=== PATIENT | female | born 1975 | race Caucasian/White ===

== ENCOUNTER 2022-03-14 10:59 | Inpatient (IN) | payer OTHER, SELFPAY ==
[2022-03-06 10:48] VITALS: BMI 34.3
--- NOTE | 2022-03-06 10:51 | PC.NURSE ---
Report to the Outpatient Waiting Room, entrance under the green pavilion located off [facility], at time 0700 on date 03/14/22. Planned Procedure Time: 0900. Time changes happen often and if your time is changed the preop area will call you the afternoon before. - You and your visitor will be asked to self-screen and do not enter if you have any COVID symptoms. - Only one visitor is requested with a max of two and NO children visitors are allowed at this time. - The patient visitor may be requested to leave or wait in car when not with patient due to distancing restrictions. - A mask is optional within the hospital. Patients may have clear liquids (water, carbonated beverages, clear teas, apple juice) until 3 hours prior to surgery with a maximum of 20 ounces. - No food from midnight until time of surgery Take the following medications with a SIP of water the morning of surgery: DULOXETINE, LEVOTHYROXINE Medications to discontinue per physician: N/A Date to take last dose: N/A Please no make-up, nail guamanian, hairspray, perfume, deodorant, or body powder the day of surgery. No jewelry (including any body piercings) or valuables the day of surgery, leave them at home. Please take a shower or bath the night before, or the morning of, surgery with an antibacterial soap. Wear comfortable, loose fitting clothing. - Jewelry must be removed prior to entering the operating room. Rings and piercings that are not removed may be cut off. - The hospital will not accept responsibility for valuables. - Please leave all valuables, including medications, at home the day of surgery. If you are going home after surgery, a licensed service car driver must drive you home. - NO public transportation without another adult if you receive anesthesia. - We recommend that an adult stay with you for 24 hours following discharge. - We also recommend that you do not drive, make important decision, drink alcoholic beverages, or take any drugs that were not prescribed by your health care provider for at least 24 hours after your discharge time. Follow any additional instructions given to you from your surgeon. If you or anyone in your household have experienced Covid symptoms in the past week, please notify your surgeon or the nurse liaison at the phone number below for possible testing. Telephone instructions given to PT - RUDDY MENDOZA and asked if any additional questions and then verbalized understanding. Patient advised to call surgeon office or pre surgery nurse liaison [phone] if any additional questions.
--- NOTE | 2022-03-12 15:08 | PM.IMHP ---
H&P: HPI History of Present Illness Date/Time: 03/12/22 15:08 47-year-old female 4 para 3013 presents for surgical management of heavy vaginal bleeding. Cycles are lasting 7-10 days heavy bleeding with clots and cramping these are occurring at 3-4 week intervals. She is known to have uterine fibroids and recent ultrasound revealed enlarged globular uterus with 11-12 cm posterior fibroid as well. Multiple options have been discussed and she desires to proceed with laparotomy with hysterectomy and ovarian preservation. Chief Complaint: Menometrorrhagia Review of Systems Review of Systems: All systems reviewed & are unremarkable except as noted in HPI and below PMFSH Past Medical History Medical History Adult hypothyroidism Anxiety Encounter for annual routine gynecological examination Hx of nephrolithotomy with removal of calculi Kidney stones Major depressive disorder, recurrent, moderate Other and unspecified hyperlipidemia Screening mammogram, encounter for Surgical History Surgical History History of dilation and curettage 2002 suction d&c--miscarriage History of tonsillectomy Family History Family History Mother Hypertension Diabetes mellitus Father Alcoholism Hypertension Grandparent Breast cancer paternal grandmother Mother Heart problem Thyroid disorder Daughter Thyroid disorder Social History Social History Smoking status: Never smoker Alcohol intake: current Alcohol use details: RARE Substance use: never Substance use type: does not use Living arrangements: with family Additional living arrangements comments: 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 Gender identity (if verbalized by the patient): Female Sexual Orientation (if Verbalized by the Patient): Straight or Heterosexual Spiritual care concerns: No Agree to blood products: Yes Meds Home Medications and Allergies Home Medications Medication Instructions Recorded Confirmed Type duloxetine 30 mg capsule,delayed 30 mg PO DAILY 11/14/21 03/06/22 History release levothyroxine 150 mcg tablet 150 mcg PO DAILY 11/14/21 03/06/22 History (Synthroid) omeprazole 20 mg capsule,delayed 20 mg PO DAILY #90 caps 11/14/21 03/06/22 Rx release clobetasol 0.05 % topical cream 1 applic topical BID #45 grams 12/24/21 03/06/22 Rx Allergies Allergy/AdvReac Type Severity Reaction Status Date / Time erythromycin base AdvReac Unknown Abdominal Verified 03/06/22 10:47 Pain Exam Const: General: cooperative, healthy appearing and comfortable Resp: Effort & Inspection: normal respiratory effort Auscultation: clear to auscultation bilaterally Cardio: Rate: regular rate Rhythm: regular rhythm GI: Inspection: normal to inspection Auscultation: normal bowel sounds : External Female Exam: normal external appearance Speculum Exam - Vagina: normal appearance of the vagina Speculum Exam - Cervix: normal appearance of the cervix Bimanual exam- vagina & uterus: enlarged ( and globular. 14-16 week size.) Assessment and Plan Assessment and plan (1) Enlarged uterus: Code(s): N85.2 - Hypertrophy of uterus Status: Acute (2) Menometrorrhagia: Code(s): N92.1 - Excessive and frequent menstruation with irregular cycle Status: Acute Plan Proceed with abdominal hysterectomy with ovarian preservation. Total versus subtotal to be determined at time of procedure.
[2022-03-14] VITALS (19 sets, daily range): BP systolic 95–140; BP diastolic 65–94; PULSE 59–87; RESP 12–20; TEMP 36.3–36.8; O2SAT 91–100
--- NOTE | 2022-03-14 06:45 | WPDANESEPPF ---
Anes - Initial Pre Proc Eval Procedure: Operation Date: 03/14/22 08:00 Proposed Procedures p Total Abdominal Hysterectomy - Turner Gonzalez MD Date/Time: 03/14/22 06:45 Surgeon: Turner Gonzalez MD Pre Op Diagnosis: menometrorrhagia Patient Data Age: 47 Gender: F Height: 1.63 m Weight: 90.72 kg Allergies Allergy/AdvReac Type Severity Reaction Status Date / Time erythromycin base AdvReac Unknown Abdominal Verified 03/06/22 10:47 Pain Home Medications Medication Instructions Recorded Confirmed Type duloxetine 30 mg capsule,delayed 30 mg PO DAILY 11/14/21 03/06/22 History release levothyroxine 150 mcg tablet 150 mcg PO DAILY 11/14/21 03/06/22 History (Synthroid) omeprazole 20 mg capsule,delayed 20 mg PO DAILY #90 caps 11/14/21 03/06/22 Rx release clobetasol 0.05 % topical cream 1 applic topical BID #45 grams 12/24/21 03/06/22 Rx Patient hx anesthesia problems: none Family hx anesthesia problems: other (mother unsure) Results Review: All pre-operative results and documents have been reviewed as part of the pre-operative evaluation. [facility] Past Medical History Medical History Adult hypothyroidism Anxiety Encounter for annual routine gynecological examination Hx of nephrolithotomy with removal of calculi Kidney stones Major depressive disorder, recurrent, moderate Other and unspecified hyperlipidemia Screening mammogram, encounter for Surgical History Surgical History History of dilation and curettage 2002 suction d&c--miscarriage History of tonsillectomy Family History Family History Mother Hypertension Diabetes mellitus Father Alcoholism Hypertension Grandparent Breast cancer paternal grandmother Mother Heart problem Thyroid disorder Daughter Thyroid disorder Social History Social History Smoking status: Never smoker Alcohol intake: current Alcohol use details: RARE Substance use: never Substance use type: does not use Living arrangements: with family Additional living arrangements comments: 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[employer] Gender identity (if verbalized by the patient): Female Sexual Orientation (if Verbalized by the Patient): Straight or Heterosexual Spiritual care concerns: No Agree to blood products: Yes Anes - Eval Final PreProcedure Day of Procedure 03/14/22 06:45 Patient weight: obese Heart: regular rate and rhythm Lungs: clear to auscultation Airway: Mallampati scale class III Neurological: alert and oriented Last oral intake: >/= 8 hours ASA classification: III Emergent: no Anesthetic plan: proceed Anesthesia type and monitoring: general ETT and standard monitoring Results Review: All pre-operative results and documents have been reviewed as part of the pre-operative evaluation. Informed Consent: The patient's anesthetic plan and its attendant risks and benefits were discussed with the patient/family/POA. Questions were solicited and answers provided to the satisfaction of the patient/family/POA.
[2022-03-14] MEDS: ACETAMINOPHEN 500 MG TABLET 1000 MG PO (06:58)
[2022-03-14] MEDS: KETOROLAC 15 MG/ML VIAL (*BKC) IV PUSH (07:00)
[2022-03-14] MEDS: LACTATED RINGERS 1,000 ML 30 ML IV CONT ×2 (07:00→10:00)
--- NOTE | 2022-03-14 07:47 | WPDHPUPDATE1 ---
History and Physical Update Update Date/Time: 03/14/22 07:47 History and Physical has been reviewed, including an updated exam of the patient. There are NO changes in the patient's condition. Risks, benefits, and alternatives have been discussed and questions answered. Patient agrees to proceed with procedure.
[2022-03-14] MEDS: ceFAZolin 2 GM/D5W 50 ML 2 GM/50 ML BAG IVPB (08:06)
--- NOTE | 2022-03-14 09:21 | P.OP_ITS ---
Procedure Note - Detailed Date of Procedure 03/14/22 Pre-op Diagnosis 1. Menometrorrhagia 2. Fibroid uterus Post-op Diagnosis Same Procedure Performed 1. Supracervical abdominal hysterectomy with bilateral salpingectomy Surgeon Turner Gonzalez MD Anesthesia General Findings 1. Enlarged fibroid uterus with a weight of 1039 g Description of Procedure Patient prepped and draped in usual manner for this procedure. Pfannenstiel incision was made carried down to the fascia. Fascial incision was extended bilaterally the length of the skin incision. Peritoneum was readily entered and uterus was delivered through this incision. Round ligaments bilaterally were clamped cut tied in the bladder flap was developed without difficulty. Posteriorly the broad ligament was also incised. Utero-ovarian ligament was identified clamped cut and tied and the ovary was dropped on the operative field. Mesial salpinx was then cauterized and cut and the tubes were from the miso salpinx. Uterine vessels were then skeletonized bilaterally cl amped cut and tied and found to be hemostatic. The pelvis was noted with long cervix and has had discussed with the patient prior to the procedure decision was made to amputate the uterus at the level of the cervix and perform a supracervical hysterectomy. Cervical stump was closed using a running locking 0 Vicryl suture. Two [id number] sutures were then to further stabilize the cervical stump. There was no bleeding and at this point the fascia was approximated using 0 Vicryl from left angle midline and the right angle to midline in a running manner with good approximation noted. Subcutaneous tissue was inspected there was no bleeding plain sutures used to approximate the subcutaneous tissue, and Monocryl used in subcuticular manner to approximate the skin edges. At this point the procedure was considered terminated and patient was sent to recovery room in stable condition. Estimated Blood Loss 50 Drains Yes (Pulido) Packing No Pathology Yes (Enlarged uterus weight 1039 g) Complications No immediate complications Condition Stable Disposition PACU [facility] Billing Surgery - Charge Forward: Surgery Billing
[2022-03-14] MEDS: fentaNYL CITRATE INJ (*CRX) 100 MCG/2 ML VIAL 25 MCG IV PUSH ×2 (10:45→10:48)
--- NOTE | 2022-03-14 11:03 | ADMGEN ---
This patient, Tiana Rivera, was admitted to OB 2nd Floor Room 289-00. Patient/family oriented to hospital policies and general routines including ID bracelet, bed and alarms, visiting hours, pain management, procedures, bathroom and other care routines, personal items, smoking policy, room service/diet, and visiting hours. Information on how to activate the Rapid Response Team has been discussed. Patient/Family are encouraged to report perceived risks to care and to ask questions if they do not understand what they are told or what they should do.
[2022-03-14] MEDS: DEXTROSE 5%/0.45% SOD CHL 1,000 ML 125 ML IV CONT ×2 (11:18→19:30)
[2022-03-14] MEDS: KETOROLAC 30 MG/ML VIAL (*BKC) IV PUSH (13:10)
[2022-03-14] MEDS: SIMETHICONE 80 MG TAB.CHEW PO (14:06)
[2022-03-14] MEDS: MORPHINE SULFATE (*CRX) 4 MG/ML INJ IV PUSH (14:06)
[2022-03-14] MEDS: MORPHINE SULFATE PCA (*CRX) 30 MG/30 ML SYR IV CONT (15:25)
[2022-03-14] MEDS: diphenhydrAMINE HCl INJ 50 MG/ML VIAL 25 MG IV PUSH (19:30)
[2022-03-15 00:25] VITALS: RESP 16; O2SAT 99
[2022-03-15 02:25] VITALS: RESP 16; O2SAT 99
[2022-03-15 03:42] VITALS: BP 126/84; PULSE 71; RESP 16; TEMP 36.3; O2SAT 97
[2022-03-15 04:13] LABS: Basophils Percent Auto 0.2 % (0.2-1.2); Eosinophils Percent Auto 0.2 % (0-4.4); Hematocrit 33.7 % (37.0-47.0); Hemoglobin 10.6 g/dL (12.0-15.0); Immature Granulocyte Absolute 0.05 K/mm3 (0.00-0.031); Immature Granulocyte Percent A 0.4 % (0-0.5); Lymphocytes Absolute Auto 1.12 K/mm3 (0.9-3.2); Lymphocytes Percent Auto 8.6 % (18.3-44.2); Mean Corpuscular HGB Conc 31.5 g/dl (32-36); Mean Corpuscular Hemoglobin 28.3 pg (26-34); Mean Corpuscular Volume 90.1 fl (80-100); Mean Platelet Volume 11.4 fl (7.4-10.4); Monocytes Percent Auto 7.9 % (2.6-8.5); Neutrophils Absolute Auto 10.7 K/mm3 (1.3-6.7); Neutrophils Percent Auto 82.7 % (45.5-73.1); Platelet Count Result 281 k/mm3 (150-375); Red Blood Count 3.74 M/mm3 (4.2-5.4); Red Cell Distribution Width 14.9 % (11.5-14.5)
[2022-03-15] MEDS: LEVOTHYROXINE SODIUM 150 MCG TABLET PO (06:47)
[2022-03-15] MEDS: HYDROcodone/acetaminophen (*CRX) 5-325 MG TABLET 1 TAB PO ×5 (07:00→21:07)
[2022-03-15] MEDS: IBUPROFEN 600 MG TABLET PO ×3 (07:01→21:08)
[2022-03-15 08:45] VITALS: BP 125/87; PULSE 71; RESP 18; TEMP 36.5; O2SAT 94
[2022-03-15] MEDS: DULoxetine HCL 30 MG CAPSULE.DR PO (09:04)
[2022-03-15] MEDS: SIMETHICONE 80 MG TAB.CHEW PO ×4 (09:04→21:07)
[2022-03-15] MEDS: PANTOPRAZOLE 40 MG TABLET PO (09:04)
--- NOTE | 2022-03-15 09:13 | WPDANESPN ---
Anes - Prog Note Post-Op Date/Time: 03/15/22 09:13 Cardiovascular status: normal Respiratory status: normal Airway patency: baseline Mental status: baseline Post-Op hydration status: normal Vital Signs: Last Vital Signs Temp 97.4 F L 03/15/22 03:42 Pulse 71 03/15/22 03:42 Resp 16 03/15/22 03:42 BP 126/84 03/15/22 03:42 Pulse Ox 97 03/15/22 03:42 O2 Del Method Nasal Cannula 03/14/22 15:15 O2 Flow Rate 1 03/14/22 15:15 Pain Score (VAS): 0 I/O: Intake & Output 03/14/22 03/15/22 03/15/22 23:59 07:59 15:59 Intake Total 1010.2 1210.8 Output Total 800 900 Balance 210.2 310.8 Laboratory Tests 03/15/22 03:48 03/15/22 03:48 WBC 13.0 H RBC 3.74 L Hgb 10.6 L Hct 33.7 L MCV 90.1 MCH 28.3 MCHC 31.5 L RDW 14.9 H Plt Count 281 MPV 11.4 H Immature Gran % (Auto) 0.4 Neut % (Auto) 82.7 H Lymph % (Auto) 8.6 L [place] % (Auto) 7.9 Eos % (Auto) 0.2 Baso % (Auto) 0.2 Lymph # (Auto) 1.12 [place] # (Auto) 1.0 H Eos # (Auto) 0.0 Baso # (Auto) 0.0 Abs Immat Gran (auto) 0.05 H Absolute Neuts (auto) 10.7 H Absolute Nucleated RBC 0.0 Nucleated RBC % 0.0 Post-procedural complaints: none Patient Feedback: Patient satisfied with anesthetic care.
--- NOTE | 2022-03-15 09:25 | PM.GYNPNOP ---
FAMILY MEDICINE PHYSICIAN ASSISTANT - A/P Postoperative Procedures: Procedures Operation Date: 03/14/22 08:00 Actual Procedure Side Surgeon p Subtotal Supracervical Abdominal Hysterectomy and Bilateral Salpingectomy with Ovarian Preservation Not Applicable Turner Gonzalez MD Postoperative day: 1 Postoperative status: doing well Postoperative plan: routine post-op care, ambulate and advance diet Time Spent With Patient Time: Total time spent is greater than 50% in coordination of care (as documented) at patient's floor/unit and/or counseling patient: Time with patient: less than 15 minutes FAMILY MEDICINE PHYSICIAN ASSISTANT- PN:Subj Post-Op Subjective Date/time seen: 03/15/22 09:25 Interval history: Patient doing well this AM. She states her pain is well controlled. She denies N/V. She is tolerating PO. She is ambulating. She is voiding spontaneously. She reports minimal amount of vaginal bleeding. She denies any fevers or chills. She reports flatus. Subjective: patient has no complaints, pain is well controlled and patient is tolerating oral intake Review of Systems Constitutional: Constitutional: Denies fever(s) Cardiovascular: Cardiovascular: Denies chest pain, Denies lightheadedness, Denies palpitations and Denies dyspnea Respiratory: Respiratory: Denies cough and Denies dyspnea Gastrointestinal: Gastrointestinal: Reports abdominal pain, Denies nausea and Denies vomiting Genitourinary: Genitourinary: Denies dysuria Endocrine: Endocrine: Denies palpitations Exam Const: General: comfortable and no acute distress Orientation/consciousness: oriented to person, oriented to place and oriented to time Resp: Effort & Inspection: normal respiratory effort Auscultation: clear to auscultation bilaterally Cardio: Rate: regular rate Rhythm: regular rhythm GI: Inspection: non-distended GI Palp: Yes Soft to palpation, Yes Tenderness to palpation present (GI) (mild tenderness to deep palpation) and No Guarding due to palpation present (GI) Auscultation: normal bowel sounds Other: Incisions C/D/I. no erythema or induration Urinary Catheter: Urinary Catheter: patent and draining and urine clear Neuro: General: oriented to person, oriented to place and oriented to time Extrem: General: normal to inspection and no edema Psych: Mental Status: mental status grossly normal Affect: normal affect FAMILY MEDICINE PHYSICIAN ASSISTANT - PN: Obj Data Vital Signs Vital Signs: Vital Signs - 24 hr 03/14/22 09:43 03/14/22 09:55 03/14/22 10:05 Temperature 97.9 F 97.9 F Pulse Rate 59 L 69 65 Respiratory Rate 20 14 14 Blood Pressure 95/65 L 103/69 106/75 Pulse Oximetry 91 95 98 Oxygen Delivery Simple Face Mask Simple Face Mask Simple Face Mask Oxygen Flow Rate 8 8 8 03/14/22 10:14 03/14/22 10:18 03/14/22 10:30 Temperature 98.3 F Pulse Rate 59 L 61 61 Respiratory Rate 14 14 12 Blood Pressure 118/75 112/72 107/72 Pulse Oximetry 100 98 96 Oxygen Delivery Simple Face Mask Room Air Room Air Oxygen Flow Rate 8 03/14/22 10:37 03/14/22 10:50 03/14/22 11:15 Temperature 97.9 F Pulse Rate 62 63 59 L Respiratory Rate 15 15 16 Blood Pressure 106/72 106/74 123/84 Pulse Oximetry 96 100 98 Oxygen Delivery Room Air Nasal Cannula Oxygen Flow Rate 2 03/14/22 11:15 03/14/22 15:25 03/14/22 15:15 Temperature 97.3 F L Pulse Rate 69 Respiratory Rate 16 16 Blood Pressure 140/88 Pulse Oximetry 98 100 100 Oxygen Delivery Nasal Cannula Oxygen Flow Rate 2 03/14/22 15:15 03/14/22 16:25 03/14/22 17:30 Temperature Pulse Rate Respiratory Rate 16 16 Blood Pressure Pulse Oximetry 100 97 98 Oxygen Delivery Nasal Cannula Oxygen Flow Rate 1 03/14/22 18:25 03/14/22 19:09 03/14/22 20:25 Temperature 97.8 F Pulse Rate 61 Respiratory Rate 16 16 16 Blood Pressure 127/91 H Pulse Oximetry 98 98 98 Oxygen Delivery Oxygen Flow Rate 03/14/22 22:25 03/14/22 22:40 03/15/22 00:25 Temperature 97.6 F Pulse Rate 74 Respiratory Rate 16 16 16 Blood Pres
--- NOTE | 2022-03-15 09:26 | PM.DS ---
DS: Admitting Diagnosis Discharge Date 03/16/22 Admitting Diagnosis Abnormal uterine bleeding fibroid uterus DS: Summary Hospital Course Hospital Course: Tiana Rivera was admitted after open hysterectomy and bilateral salpingectomy for abnormal uterine bleeding and uterine fibroids. The above procedure was performed with no complications. She is doing well post op. She states her pain is well controlled with PO medications. She reports minimal bleeding. She is ambulating up to the chair. Her gan catheter was removed. She is tolerating PO without N/V. She reports passing flatus. Status at Discharge Overall status at discharge: patient is progressing back to baseline Time Spent with Patient Time attestation: Total time spent providing and/or coordinating discharge services: Time spent: Less than 30 minutes Exam Const: General: comfortable and no acute distress Limitations: no limitations Resp: Effort & Inspection: normal respiratory effort Auscultation: clear to auscultation bilaterally Cardio: Rate: regular rate Rhythm: regular rhythm GI: Inspection: non-distended and incision GI Palp: Yes Soft to palpation, Yes Tenderness to palpation present (GI) (milder tenderness to deep palpation) and No Guarding due to palpation present (GI) Auscultation: normal bowel sounds Other: incisions C/D/I covered with dermabond Urinary Catheter: Urinary Catheter: urine clear Skin: General skin exam: normal color Extrem: General: normal to inspection Psych: Mental Status: mental status grossly normal Affect: normal affect DS: Data Data Completed and Pending Pending studies at discharge: Pending at discharge 03/14/22 09:04 Surgical [PTH] Routine Labs on day of discharge: Labs from last 24 hours 03/15/22 03:48 WBC 13.0 H RBC 3.74 L Hgb 10.6 L Hct 33.7 L MCV 90.1 MCH 28.3 MCHC 31.5 L RDW 14.9 H Plt Count 281 MPV 11.4 H Immature Gran % (Auto) 0.4 Neut % (Auto) 82.7 H Lymph % (Auto) 8.6 L [place] % (Auto) 7.9 Eos % (Auto) 0.2 Baso % (Auto) 0.2 Lymph # (Auto) 1.12 [place] # (Auto) 1.0 H Eos # (Auto) 0.0 Baso # (Auto) 0.0 Abs Immat Gran (auto) 0.05 H Absolute Neuts (auto) 10.7 H Absolute Nucleated RBC 0.0 Nucleated RBC % 0.0 Discharge Plan Discharge Attending physician on discharge: Ashley Weeks Discharging Clinician: Bernie Acuna Anticipated Discharge Date/Time: 03/16/22 11:38 Patient Disposition: Home, Self-Care Activity: may shower, may drive after 2 weeks and pelvic rest Diet: regular Patient Instructions: Antibiotic Form, Hysterectomy (DC) Stand Alone Forms: General Discharge Information Follow-up/Referrals: Turner Gonzalez MD [Physician] - 2 Weeks Discharge Medications: New oxycodone-acetaminophen 5-325 mg tablet 1 tablet PO Q6H PRN (Reason: pain) Qty: 30 0RF ibuprofen 600 mg tablet 600 mg PO Q6H PRN (Reason: pain) Qty: 30 0RF Continued levothyroxine [Synthroid] 150 mcg tablet 150 mcg PO DAILY duloxetine 30 mg capsule,delayed release(DR/EC) 30 mg PO DAILY omeprazole 20 mg capsule,delayed release(DR/EC) 20 mg PO DAILY Qty: 90 0RF clobetasol 0.05 % cream 1 applic topical BID Qty: 45 0RF Date of admission: 03/14/22 10:59 Primary Care Provider: Jag Humphreys Admitting Provider: Turner Gonzalez Attending physician on admission: Turner Gonzalez Condition: Stable
[2022-03-15 21:05] VITALS: BP 141/92; PULSE 72; RESP 16; TEMP 36.4
[2022-03-16] MEDS: HYDROcodone/acetaminophen (*CRX) 5-325 MG TABLET 1 TAB PO (07:22)
[2022-03-16] MEDS: SIMETHICONE 80 MG TAB.CHEW PO (07:22)
[2022-03-16] MEDS: LEVOTHYROXINE SODIUM 150 MCG TABLET PO (07:22)
[2022-03-16] MEDS: IBUPROFEN 600 MG TABLET PO (07:23)
[2022-03-16 07:55] VITALS: BP 129/84; PULSE 74; RESP 16; TEMP 36.2; O2SAT 95
[2022-03-16] MEDS: PANTOPRAZOLE 40 MG TABLET PO (09:23)
[2022-03-16] MEDS: DULoxetine HCL 30 MG CAPSULE.DR PO (09:23)
--- NOTE | 2022-03-16 10:30 | WPDPN ---
Progress Note: A&P Assessment and Plan (1) Post-operative pain: Code(s): G89.18 - Other acute postprocedural pain Status: Acute Assessment and Plan: Well controlled. (2) History of hysterectomy, supracervical: Code(s): Z90.711 - Acquired absence of uterus with remaining cervical stump Status: Acute Assessment and Plan: No vaginal bleeding. Incision approximated. Minimal bruising. Subjective Date/time seen: 03/16/22 10:30 Interval history: Tiana is resting in bed with aqua-K pad applied for comfort. She reports that she is doing well. Pain well controlled with meds. She is tolerating PO intake, urinating well, and passing flatus. She has ambulated in the room several times. She denies any vaginal bleeding. Review of Systems Review of Systems: All systems reviewed & are unremarkable except as noted in HPI and below Exam Const: General: comfortable and no acute distress Resp: Effort & Inspection: normal respiratory effort Auscultation: clear to auscultation bilaterally Cardio: Rate: regular rate Other: Pedul pulses equal GI: GI Palp: Yes Soft to palpation Auscultation: normal bowel sounds : Bimanual exam- vagina & uterus: bladder normal to palpation Skin: General skin exam: no rashes or lesions noted Other: Incision approximated. No drainage. Minimal bruising. Neuro: General: gait normal Speech: normal speech Extrem: General: normal to inspection Psych: Mental Status: mental status grossly normal Affect: normal affect Objective Data Vital Signs Vital Signs: Vital Signs - 24 hr 03/15/22 21:05 03/16/22 07:55 Temperature 97.5 F L 97.2 F L Pulse Rate 72 74 Respiratory Rate 16 16 Blood Pressure 141/92 H 129/84 Pulse Oximetry 95 Intake/Output Intake/Output: Intake & Output 03/13/22 03/14/22 03/15/22 03/16/22 23:59 23:59 23:59 23:59 Intake Total 1960.2 2510.8 Output Total 1150 1500 Balance 810.2 1010.8 Meds/Results Medications: Active Medications Generic Name Dose Route Start Last Admin Trade Name Freq PRN Reason Stop Dose Admin Hydrocodone Bitart/Acetaminophen 1 tab 03/14/22 10:59 03/16/22 07:22 Hydrocodone/Acetaminophen (*Crx) 5-325 Mg Tablet PO 1 tab Q3H PRN Administration Pain Rated 5 or Less Clobetasol Propionate 1 applic 03/14/22 17:00 03/16/22 09:23 Clobetasol Propionate 0.05% Cream 15 Gm TOPICAL Not Given BID PATRICIO Diphenhydramine HCl 25 mg 03/14/22 19:20 03/14/22 19:30 Diphenhydramine Hcl Inj 50 Mg/Ml Vial IV PUSH 25 mg Q4H PRN Administration Itching Duloxetine HCl 30 mg 03/15/22 09:00 03/16/22 09:23 Duloxetine Hcl 30 Mg Capsule.Dr PO 30 mg DAILY PATRICIO Administration Ibuprofen 600 mg 03/14/22 10:59 03/16/22 07:23 Ibuprofen 600 Mg Tablet PO 600 mg Q6H PRN Administration Cramping Ketorolac Tromethamine 30 mg 03/14/22 10:59 03/14/22 13:10 Ketorolac 30 Mg/Ml Vial (*Bkc) IV PUSH 03/19/22 10:58 30 mg Q6H PRN Administration Pain Rated 4-6 Levothyroxine Sodium 150 mcg 03/15/22 06:30 03/16/22 07:22 Levothyroxine Sodium 150 Mcg Tablet PO 150 mcg DAILY@0630 [facility] Administration Morphine Sulfate 4 mg 03/14/22 10:59 03/14/22 14:06 Morphine Sulfate (*Crx) 4 Mg/Ml Inj IV PUSH 4 mg Q4H PRN Administration Pain Rated 7-10 Naloxone HCl 0.1 mg 03/14/22 10:59 Naloxone Hcl 0.4 Mg/Ml Vial IV PUSH Q2M PRN Respiratory rate less than 10 Ondansetron HCl 4 mg 03/14/22 10:59 Ondansetron Inj 4 Mg/2 Ml Vial IV PUSH Q6H PRN Nausea Pantoprazole Sodium 40 mg 03/15/22 09:00 03/16/22 09:23 Pantoprazole 40 Mg Tablet PO 04/14/22 08:59 40 mg DAILY PATRICIO Administration Simethicone 80 mg 03/14/22 10:59 03/16/22 07:22 Simethicone 80 Mg Tab.Chew PO 80 mg Q2H PRN Administration Gas
== END 2022-03-16 11:45 | disposition home or self-care (01) | DRG 743 ==
LOC: ANHOB2 03-15 09:28
PROVIDERS: Admitting Provider Obstetrics & Gynecology; PCP Internal Medicine; Visit Provider Advanced Practice Midwife
PROC: 0UT94ZZ Resection of Uterus, Percutaneous Endoscopic Approach (ICD-10-PCS; principal; 2022-03-14 08:00)
DX: N85.2 Hypertrophy of uterus (principal); D25.9 Leiomyoma of uterus, unspecified; N92.1 Excessive and frequent menstruation with irregular cycle; E03.9 Hypothyroidism, unspecified; F41.9 Anxiety disorder, unspecified
CPT/HCPCS: 36415; 85025; 86850; 86900; 86901; 88307; A9270; J0690; J1100; J1170; J1200; J1885; J2250; J2270; J2405; J2704; J3010; J7120